=== PATIENT | male | born 1955 | race Caucasian/White ===

== ENCOUNTER → 2022-09-01 | Outpatient (CLI) | payer MEDICARE | LOC: ORTHO 10:13 | PROVIDERS: ATTEND Orthopaedic Surgery | DX: M17.11 Unilateral primary osteoarthritis, right knee (principal); E11.9 Type 2 diabetes mellitus without complications; E78.5 Hyperlipidemia, unspecified; I10 Essential (primary) hypertension | CPT/HCPCS: 20610 ==

== ENCOUNTER 2023-03-10 05:38 | Outpatient (CLI) | payer MEDICARE ==
[~2023-03-10] VITALS: Ht 185.5 cm; Wt 118.8 kg
[2023-03-10] MEDS ORDERED: ONDA4TAB11 SL (14:47)
[2023-03-10] MEDS ORDERED: ALLO100T PO (14:47)
[2023-03-10] MEDS ORDERED: ATOR10TA66 PO (14:47)
[2023-03-10] MEDS ORDERED: GLUC-116 PO (14:47)
[2023-03-10] MEDS ORDERED: LISI1TAB46 PO (14:47)
[2023-03-10] MEDS ORDERED: ACHD5005 PO (14:47)
[2023-03-10] MEDS ORDERED: METF-845 PO (14:47)
== END 2023-03-10 15:21 ==
LOC: PREOP 05:38
PROVIDERS: ATTEND Surgery
DX: Z01.818 Encounter for other preprocedural examination (principal)

== ENCOUNTER 2023-03-16 09:10 | Day surgery (SDC) | payer MEDICARE ==
[~2023-03-16] VITALS: Ht 188 cm; Wt 118.8 kg
[2023-03-16] VITALS (10 sets, daily range): BP systolic 113–148; BP diastolic 59–93
[~2023-03-16 09:10] MED LIST: ACHD5005 PO; ALLO100T PO; ATOR10TA66 PO; GLUC-116 PO; LISI1TAB46 PO; METF-845 PO; ONDA4TAB11 SL
[2023-03-16] MEDS ORDERED: ceFAZolin INJECTION 2,000 MG in NS (IVPB) 50 ML 50 ML IV ONE (09:30)
[2023-03-16] MEDS: LACTATED RINGERS 1,000 ML IV PRN ×3 (10:21→13:17)
[2023-03-16] MEDS ORDERED: LIDOCAINE 1% w/EPI 1:100,000 20 ML VIAL ONE (10:25)
[2023-03-16] MEDS ORDERED: proPOfol 200 MG/20 ML (DIPRIVAN) VIAL IV ONE (10:26)
[2023-03-16] MEDS ORDERED: MIDAZOLAM 2 MG/2 ML (VERSED) VIAL ONE (10:26)
[2023-03-16] MEDS ORDERED: LIDOCAINE PF 2% 5 ML VIAL ONE (10:26)
[2023-03-16] MEDS ORDERED: ONDANSETRON 4 MG/2 ML (SDV) Z0FRAN ONE (10:26)
[2023-03-16] MEDS ORDERED: fentaNYL INJECTION 100 MCG/2 ML VIAL ONE ×2 (10:26→13:18)
[2023-03-16] MEDS ORDERED: SEVOFLURANE (ULTANE) 15 ML INHAL SOLN ONE ×2 (10:26→13:50)
--- NOTE | 2023-03-16 11:15 | Progress Note-Pre Operative ---
Pre-Operative Progress Note Date of Available H&P: Mar 08, 2023 Date H&P Reviewed: Mar 16, 2023 Time H&P Reviewed: 11:12 History & Physical: H&P Reviewed, Patient Examed, No changes noted Pre-Operative Diagnosis: Cholelithiasis CHAPITO FREIRE DO Mar 16, 2023 11:15
[2023-03-16] MEDS ORDERED: LIDOCAINE 1% w/EPI 1:100,000 20 ML VIAL INJ ONE (12:21)
[2023-03-16] MEDS ORDERED: IOHEXOL 300 MG/ML 30 ML (OMNIPAQUE 300) VIAL INJ ONE (12:22)
[2023-03-16] MEDS ORDERED: ROCURONIUM 50 MG/5 ML (ZEMURON) VIAL IV ONE ×2 (12:57→13:10)
[2023-03-16] MEDS ORDERED: GLYCOPYRROLATE INJ 0.2 MG/ML 2 ML VIAL ONE (13:20)
[2023-03-16] MEDS ORDERED: NEOSTIGMINE (BLOXIVERZ ) 1 MG/1ML 10 ML VIAL ONE (13:20)
[2023-03-16] MEDS ORDERED: ONDANSETRON 4 MG/2 ML (SDV) Z0FRAN IVP PRN ×2 (14:00→14:15)
[2023-03-16] MEDS ORDERED: HYDROmorphone INJECTION 2 MG/ML VIAL IV ONE (14:00)
[2023-03-16] MEDS ORDERED: morphine INJ 10 MG/ML 1ML (SYR OR VIAL) IVP ONE (14:00)
--- NOTE | 2023-03-16 14:21 | Diagnostic Imaging Report ---
Indication: Laparoscopic cholecystectomy COMPARISON: None available. Findings and impression: Intraoperative fluoroscopy was used by Dr. Baltazar. No images were submitted for interpretation. Fluoroscopy time: 21.2 seconds, cumulative dose: 12.33 mCi Dictated by: Dictated on workstation # [id number]
[2023-03-16] MEDS: HYDROcodone/ACETAMINOPHEN 10/325 TABLET PO PRN ×2 (15:14→21:52)
[2023-03-16] MEDS: LACTATED RINGERS 1,000 ML IV SCH ×2 (15:14→22:24)
[2023-03-16] MEDS: metroNIDAZOLE 500MG/100ML IVPB 100 ML IV SCH ×2 (15:15→22:30)
[2023-03-16] MEDS: ceFAZolin INJECTION 2,000 MG in NS (IVPB) 50 ML 50 ML IV SCH (18:03)
[2023-03-16] MEDS: morphine INJ 4 MG/ML 1 ML (VIAL/SYRINGE) IVP PRN (18:20)
--- NOTE | 2023-03-16 20:29 | OPERATIVE REPORT ---
DATE OF SERVICE: 03/16/2023 PREOPERATIVE DIAGNOSES: Cholelithiasis, cholecystitis. POSTOPERATIVE DIAGNOSES: Acute cholecystitis with cholelithiasis on top of chronic cholecystitis as well as hydrops of the gallbladder. PROCEDURE: Laparoscopic cholecystectomy with attempted intraoperative cholangiogram, placement of drains. SURGEON: Keith Baltazar DO [employer] REPRESENTATIVE: Dr. Taylor. ANESTHESIA: General endotracheal tube. SPECIMENS: Gallbladder and contents. BLOOD LOSS: Approximately 50 mL FLUIDS: Per anesthesia. POSTOPERATIVE CONDITION: Stable. INDICATIONS FOR PROCEDURE: The patient is a 67-year-old male who has been having severe abdominal pain and found to have some stones in the gallbladder needed to get this treated. FINDINGS: The patient had multiple adhesions omentum and stomach to the gallbladder. Gallbladder was inflamed, almost looked like it was acute cholecystitis. It was very distended and we actually had to make a small hole in the distal portion of the gallbladder and immediately got out clear fluid. I took a picture of this. This was hydrops of the gallbladder, then grasped the gallbladder, fundus and taken to superior direction, continued to take down the adhesions, carefully taking these down with blunt dissection as well as some Bovie electrocautery. Getting down to the base of the gallbladder. Grasping Uriel's pouch and pulled in inferolateral direction, started trying to dissect out the cystic duct and cystic artery, was very inflamed, very hard to see what appeared to be the cystic artery, put 2 clips distally and 1 proximally and then cut around. It looked like the cystic duct, placed a clip distally, tried to cut prison through Metzenbaum scissors, could not really get an opening into the cystic duct and then felt like the cystic artery was then away, cut the cystic duct and then the gallbladder ripped away. We spent about 45 minutes trying to find the cystic duct opening in the cystic duct, thought we had found a portion, we shot a couple cholangiogram, but it did not go into any duct to just stayed in the gallbladder fossa. At this point, stopped and then looked again closely in this inflamed tissue and grabbed it, looked like it was the cystic duct, placed a clip across here and then started taking the gallbladder off the bed of liver with a L-hook cautery. It was very inflamed and thickened and firm in this area and while taking this off, encountered a posterior branch right along the liver up about prison up along the gallbladder. It started scoring out, able to get 2 clips below this to stop the bleeding and then continued to take the gallbladder off the bed of the fossa with the L-hook cautery. Once this was completely removed, placed a bag in the abdomen and placed the gallbladder in a bag and removed this through the supraumbilical incision, placed the port back in the abdomen, looked around. There was some bleeding from the bed of the liver. This was controlled with Bovie electrocautery and then elected to place a 19-Nepali Teo drain up under the bed of the liver and the gallbladder fossa and brought out through the right most lateral port site, sutured in place with a 3-0 nylon, copiously irrigated. There was no bleeding, did not appear to be any bile leakage. At this point, the patient had been in reverse Trendelenburg. He was rotated left. Then removed all ports under direct visualization, allowed pneumoperitoneum to escape, closed supraumbilical incision with 0 Vicryl suture previously placed, copiously irrigated all incisions and closed the two small 5 mm incisions with single interrupted 4-0 undyed Monocryl subcuticular stitch, closed the supraumbilical incision with 3 interrupted 4-0 undyed Monocryl subcuticular stitches. Area was cleaned and dried. Dermabond placed as well as Band-Aids. The patient was then transferred to recovery room in stable condition with a bulb syringe on the drain. Sponge and needle count correct at the end of the case. At the beginning of the case, the patient was brought to the operating room and placed on table in supine position, sterilely prepped and draped in normal fashion. Local lidocaine used to infiltrate the skin above the umbilicus and made an incision with 11 blade, carried down through the skin and subcutaneous tissue, then deepened down through subcutaneous tissue with electrocautery down to fascia. Fascia incised with electrocautery, bluntly entered the abdomen, swept a finger around, placed 0 Vicryl [id number] suture, created pneumoperitoneum and placed a 11 mm trocar port, and then placed 3 more ports in the normal fashion using local lidocaine, 11 blade for stab incision and VersaStep system all done under direct visualization, one subxiphoid and two in the right upper quadrant. Upon entry noted the omentum stuck on top of the gallbladder. There was also an adhesion from the liver to the abdominal wall. It was very flimsy and then started taking the adhesions off the gallbladder, so that we could grab it the fundus. Dr. Taylor assisted in this case helping to make incisions, close incisions, identify anatomy and hold anatomy away. Job ID: [id number] DocumentID: [id number] Dictated Date: 03/16/2023 16:20:55 [employer] Date: 03/16/2023 20:27:00 Dictated By: KEITH BALTAZAR DO
[2023-03-17] MEDS: ceFAZolin INJECTION 2,000 MG in NS (IVPB) 50 ML 50 ML IV SCH (02:02)
[2023-03-17] MEDS: morphine INJ 4 MG/ML 1 ML (VIAL/SYRINGE) IVP PRN (02:10)
[2023-03-17 03:59] VITALS: BP 126/67
[2023-03-17] MEDS: LACTATED RINGERS 1,000 ML IV SCH ×2 (06:12→08:55)
[2023-03-17 07:23] LABS: BASOPHILS % (AUTO) 0 % (0-10); EOSINOPHILS % (AUTO) 0 % (0-10); HEMATOCRIT 38 % (40-54); LYMPHOCYTES # (AUTO) 1.3 10^3/uL (1.0-4.0); LYMPHOCYTES % (AUTO) 13 % (12-44); MEAN CORPUSCULAR HEMOGLOBIN 33 pg (25-34); MEAN CORPUSCULAR HGB CONC 35 g/dL (32-36); MEAN CORPUSCULAR VOLUME 96 fL (80-99); MEAN PLATELET VOLUME 9.4 fL (9.0-12.2); MONOCYTES # (AUTO) 0.8 10^3/uL (0.0-1.0); MONOCYTES % (AUTO) 8 % (0-12); NEUTROPHILS # (AUTO) 7.9 10^3/uL (1.8-7.8); NEUTROPHILS % (AUTO) 78 % (42-75); PLATELET COUNT 262 10^3/uL (130-400); WHITE BLOOD COUNT 10.1 10^3/uL (4.3-11.0)
[2023-03-17 07:35] LABS: ALBUMIN 3.5 GM/DL (3.2-4.5)
[2023-03-17 07:36] LABS: POTASSIUM 3.9 MMOL/L (3.6-5.0)
[2023-03-17 07:37] LABS: CALCIUM 8.8 MG/DL (8.5-10.1)
[2023-03-17 07:38] LABS: TOTAL PROTEIN 5.9 GM/DL (6.4-8.2)
[2023-03-17 07:40] LABS: BILIRUBIN,TOTAL 0.5 MG/DL (0.1-1.0)
[2023-03-17 07:42] LABS: CREATININE SERUM 0.81 MG/DL (0.60-1.30)
[2023-03-17] MEDS ORDERED: PANTOPRAZOLE 40 MG (PROTONIX) VIAL IVP SCH (09:00)
[2023-03-17] MEDS ORDERED: METF-865 PO (10:58)
--- NOTE | 2023-03-17 11:08 | Diagnostic Imaging Report ---
INDICATION: Biliary disease, suspicion for a common duct obstruction. Patient has had a cholecystectomy. The patient received 5.5 mCi technetium 99m mebrofenin and sequential imaging performed. There is homogenous distribution of radiopharmacy throughout the liver parenchyma. Within 10 minutes time activity was within intra and extrahepatic bile ducts. Serial images showed no scintigraphic findings of significant intra or extrahepatic bile duct dilatation. No abnormal accumulation in the postoperative gallbladder fossa. No perihepatic or subcapsular bile extravasation. There was however persistent intensified collection of activity adjacent to the tip of the distal common bile duct presumed to be refluxed into the stomach but this showed no appreciable antegrade advancement through the proximal small bowel. IMPRESSION: No scintigraphic findings of a biliary leak or findings of ductal dilatation. Progressive accumulation of a contained activity well below the undersurface of the liver presumed to be within the stomach. Dictated by: Dictated on workstation # [id number]
[2023-03-17 11:28] VITALS: BP 124/62
--- NOTE | 2023-03-17 13:31 | Anesthesia-General Post-Op ---
General Patient Condition Mental Status/LOC: Same as Preop Cardiovascular: Satisfactory Nausea/Vomiting: Absent Respiratory: Satisfactory Pain: Controlled Complications: Absent Post Op Complications Complications None Follow Up Care/Instructions Patient Instructions None needed. Anesthesia/Patient Condition Patient Condition Patient is doing well. He is having some abdominal discomfort, but it is well controlled. He has no complaints of nausea and has stable vital signs, no apparent adverse anesthesia problems. No complications reported per nursing. GEOVANNA ROACH DO Mar 17, 2023 13:31
[2023-03-17] MEDS ORDERED: ACHYD1T PO (14:00)
--- NOTE | 2023-03-17 14:01 | Discharge Inst-Surgical ---
Discharge Inst-Surgical Depart Medication/Instructions New, Converted or Re-Newed RX: Transmitted to Pharmacy Patient Instructions Follow up Appt: Make appointment for 1 week. [phone] Instructions: No lifting greater than 20 pounds. No strenuous activity. May shower in 24 hours, no tub bath or soaking. Use incentive spirometer at home as directed. No Smoking Skin/Wound Care: May remove bandages in am. You need to leave the Dermabond on incision it will fall off on it's own. Symptoms to Report: Appetite Changes, Extremity Discoloration, Numbness/Tingling, Swelling Increased, Bleeding Excessive, Eyesight Changes, Pain Increased, Urine Color Change, Constipation(Persistent), Fever over 101 degree F, Pain/Pressure in chest, Urinating Difficulty, Cough Up/Vomit Blood, Heart Beat Irreg/Pounding, Pain/Pressure in jaw, Cramps in feet or legs, Lightheadedness, Pain/Pressure in shoulder, Diarrhea(Persistent), Memory Changes Suddenly, Questions/Concerns, Weight gain consecutive days, Dizziness/Fainting, Nausea/Vomiting, Shortness of Breath, Weight gain over 2 pounds If questions or concerns contact your physician Or seek help at emergency department. Activity Activity as Tolerated: Yes Activity Instructions: Avoid Stress to Incision Driving Instructions: No Driving/Refer to Dr. Thornton Discharge Diet: Avoid Fatty Foods, Low Fat/Low Cholesterol If Any Problems/Questions/Issu: Contact Your Physician, Go to Emergency Room Skin/Wound Care Infection Signs and Symptoms: Increased Redness, Foul Odor of Wound, Increased Drainage, Skin Itchy or Has a Rash, Increased Swelling, Temperature Above 101 F Wound Care Comment: SAUL drain teaching Bathing Instructions: Shower Stitches/Dariel/Dermabond Dis: CHAPITO Nevarez DO Mar 17, 2023 14:01
--- NOTE | 2023-03-17 14:05 | Progress Note - Surgery ---
Subjective Time Seen by a Provider: 13:42 Subjective/Events-last exam Pt seen and examined, states he is doing great and wants to go home. Abdominal pain is minimal. Review of Systems Pulmonary: No Dyspnea, No Cough Cardiovascular: No: Chest Pain, Palpitations Gastrointestinal: Abdominal Pain; No: Nausea Objective Exam Vital Signs Date Time Temp Pulse Resp B/P (MAP) Pulse Ox O2 Delivery O2 Flow Rate FiO2 03/17/23 11:28 36.3 67 20 124/62 (82) 94 Room Air 03/17/23 08:00 Room Air 03/17/23 03:59 36.6 68 18 126/67 (86) 93 Room Air 03/16/23 23:30 37.1 67 18 117/59 (78) 93 Room Air 03/16/23 19:56 37.1 80 18 113/70 (84) 94 Room Air 03/16/23 19:50 Room Air 03/16/23 15:47 36.0 67 18 135/87 (103) 95 Room Air 03/16/23 15:35 Room Air 03/16/23 14:40 Room Air 03/16/23 14:30 Room Air 03/16/23 14:30 36.2 20 140/89 (106) 95 Room Air 03/16/23 14:20 20 145/85 (105) 96 OxyMask 2.00 03/16/23 14:15 OxyMask 3.00 03/16/23 14:10 20 148/87 (107) 98 OxyMask 4.00 I & O 03/17/23 06:59 Intake Total 5660 ml Output Total 595 ml Balance 5065 ml Capillary Refill : Less Than 3 Seconds General Appearance: No Apparent Distress, WD/WN Respiratory: Lungs Clear, Normal Breath Sounds, No Accessory Muscle Use, No Respiratory Distress Cardiovascular: Regular Rate, Rhythm, No Murmur Gastrointestinal: soft, no organomegaly, tenderness (mostly at incisions), other (SAUL drain with serosanguinous fluid, no bile staining) Results Lab Laboratory Tests 03/17/23 07:15: White Blood Count 10.1, Red Blood Count 3.94L, Hemoglobin 13.0L, Hematocrit 38L, Mean Corpuscular Volume 96, Mean Corpuscular Hemoglobin 33, Mean Corpuscular Hemoglobin Concent 35, Red Cell Distribution Width 12.5, Platelet Count 262, Mean Platelet Volume 9.4, Immature Granulocyte % (Auto) 0, Neutrophils (%) (Auto) 78H, Lymphocytes (%) (Auto) 13, Monocytes (%) (Auto) 8, Eosinophils (%) (Auto) 0, Basophils (%) (Auto) 0, Neutrophils # (Auto) 7.9H, Lymphocytes # (Auto) 1.3, Monocytes # (Auto) 0.8, Eosinophils # (Auto) 0.0, Basophils # (Auto) 0.0, Immature Granulocyte # (Auto) 0.0, Sodium Level 135, Potassium Level 3.9, Chloride Level 101, Carbon Dioxide Level 25, Anion Gap 9, Blood Urea Nitrogen 12, Creatinine 0.81, Estimat Glomerular Filtration Rate 97, BUN/Creatinine Ratio 15, Glucose Level 106H, Calcium Level 8.8, Corrected Calcium 9.2, Total Bilirubin 0.5, Aspartate Amino Transf (AST/SGOT) 30, Alanine Aminotransferase (ALT/SGPT) 51, Alkaline Phosphatase 62, Total Protein 5.9L, Albumin 3.5 Microbiology 03/16/23 MRSA Screen - Final, Complete MRSA not isolated Assessment/Plan Assessment/Plan Assessment/Plan S/P Lap anayeli HIDA scan did not show any compromise of CBD or CHD and no leak, contrast drains into small bowel. His labs today are completely normal; Bili 0.5 and AST/ALT in the 50-60 range. Will d/c pt to home. CHAPITO FREIRE DO Mar 17, 2023 14:05
== END 2023-03-17 14:50 | disposition home or self-care (01) ==
LOC: SDC 09:10 → 4TH 14:35 → SDC 03-17 14:50
PROVIDERS: ATTEND Surgery
DX: K80.12 Calculus of gallbladder with acute and chronic cholecystitis without obstruction (principal); K66.0 Peritoneal adhesions (postprocedural) (postinfection); K21.9 Gastro-esophageal reflux disease without esophagitis; Z79.899 Other long term (current) drug therapy
CPT/HCPCS: 47563; 76000; 78226; 80053; 82947; 85025; 87081; 88304; A9537; 36415